=== PATIENT | female | born 1985 | race Caucasian/White ===

== ENCOUNTER 2022-02-21 09:12 | Outpatient (CLI) | payer OTHER, SELFPAY ==
[2022-02-21 11:26] LABS: Cholesterol* 184 mg/dL (90-199)
[2022-02-21 11:27] LABS: HDL Cholesterol* 57 mg/dL (>=50); LDL Cholesterol Calculated 109 mg/dL (<100); Triglycerides* 92 mg/dL (40-149)
== END 2022-02-21 09:13 | disposition home or self-care (01) ==
PROVIDERS: Visit Provider Registered Nurse
DX: Z01.419 Encounter for gynecological examination (general) (routine) without abnormal findings (principal); N92.0 Excessive and frequent menstruation with regular cycle; Z13.6 Encounter for screening for cardiovascular disorders
CPT/HCPCS: 80061; 84443

== ENCOUNTER 2022-03-14 08:36 | Outpatient (CLI) | payer OTHER, SELFPAY ==
--- NOTE | 2022-03-14 08:45 | CRLHL7_ITS ---
For Patients: As a result of the Century Cures Act, medical imaging exams and procedure reports are released immediately into your electronic medical record. You may view this report before your referring provider. If you have questions, please contact your health care provider. INDICATION: Menorrhagia COMPARISON: none TECHNIQUE: 2D aldana scale and color Doppler images were acquired of the pelvis using a transabdominal and transvaginal approach. FINDINGS: Sonographic images demonstrate an enlarged uterus measuring 10.5 x 9.7 x 10.4 cm. There is a large heterogeneous mass associated with the uterus which encompasses the myometrium. The endometrium is not visualized. Neither ovary is visualized. IMPRESSION: Large fibroid uterus with either 1 large fibroid or multiple smaller fibroids. These obscure the endometrium. A pelvic MRI may be more useful for further evaluation. Dictated by Jesus Mathews MD @ 03/14/2022 9:41:15 AM (Electronically Signed)
== END 2022-03-14 08:37 | disposition home or self-care (01) ==
PROVIDERS: PCP Registered Nurse; Visit Provider Registered Nurse
DX: N92.0 Excessive and frequent menstruation with regular cycle (principal); D25.9 Leiomyoma of uterus, unspecified
CPT/HCPCS: 76830; 76856

== ENCOUNTER 2022-09-28 15:23 | Outpatient (CLI) | payer OTHER, SELFPAY ==
--- NOTE | 2022-09-28 15:30 | CRLHL7_ITS ---
For Patients: As a result of the Century Cures Act, medical imaging exams and procedure reports are released immediately into your electronic medical record. You may view this report before your referring provider. If you have questions, please contact your health care provider. INDICATION: Menorrhagia; fibroids. COMPARISON: Pelvic ultrasound March 14, 2022. TECHNIQUE: MR of the pelvis without and with intravenous contrast in axial, coronal and sagittal projections; 15 cc of Dotarem contrast was injected. FINDINGS: Enlarged uterus measuring 14.3 x 10.68 and 0.5 cm. a cluster of uterine fibroids involving the anterior uterine body measuring 13.6 x 10.3 cm in aggregate measurement probably comprising multiple large fibroids. Uterus is displaced posteriorly without any distortion of the endometrial lining. Cystic degeneration within the fibroid. No adnexal pathology. A 2.4 cm cyst in the right ovary. No free fluid identified within the pelvic cul-de-sac. No abnormal pelvic lymphadenopathy. IMPRESSION: 1. Enlarged uterus measuring 14.3 x 10.6 x 10.5 cm. 2. Large uterine fibroid or conglomeration of fibroids measuring 13.6 x 10.3 cm. 3. The uterus displaced posteriorly without any distortion of the endometrial lining. 4. Fibroids originate from the anterior uterine body. 5. Cystic degeneration within the fibroid. 6. Enhancement of the fibroids was contrast indicating these are viable 7. No adnexal pathology. 8. Small cyst in the right ovary measuring 2.4 cm. Dictated by Jaspal Ordoñez MD @ 10/04/2022 9:23:38 PM (Electronically Signed)
== END 2022-09-28 15:24 | disposition home or self-care (01) ==
PROVIDERS: PCP Registered Nurse; Visit Provider Obstetrics & Gynecology
DX: D25.9 Leiomyoma of uterus, unspecified (principal); N92.0 Excessive and frequent menstruation with regular cycle; N85.2 Hypertrophy of uterus; N83.201 Unspecified ovarian cyst, right side
CPT/HCPCS: 72197; A9575

== ENCOUNTER 2023-01-16 08:15 | Outpatient (CLI) | payer OTHER, SELFPAY | END 2023-01-16 08:16 | disposition home or self-care (01) | PROVIDERS: Visit Provider Family Medicine | DX: Z01.818 Encounter for other preprocedural examination (principal) | CPT/HCPCS: 80048; 85025 ==

== ENCOUNTER 2023-02-07 09:29 | Day surgery (SDC) | payer OTHER, SELFPAY ==
[2023-02-07] VITALS (17 sets, daily range): BP systolic 89–119; BP diastolic 43–85; PULSE 60–93; RESP 16–20; TEMP 36.1–37.3; O2SAT 93–99; BMI 30.3
[2023-02-07 10:27] LABS: Hemoglobin* 14.6 gm/dL (12.0-16.0)
[2023-02-07 10:29] LABS: Ur HCG Qualitative* Negative (Negative)
[2023-02-07] MEDS: LACTATED RINGERS 1000 ML 1,000 ML 100 ML IV ×2 (10:44→13:19)
[2023-02-07] MEDS: SODIUM CHLORIDE 0.9 % (FLUSH) 10 ML SYRINGE IVF (10:44)
[2023-02-07] MEDS: SCOPOLAMINE 1 MG/3 DAY PATCH 1 PATCH TRANSDERMA (10:45)
[2023-02-07] MEDS: CEFAZOLIN 2 GM INJ IVP (12:16)
[2023-02-07] MEDS: 0.9 % SODIUM CHLORIDE 50 ml INJECTION (12:40)
[2023-02-07] MEDS: VASOPRESSIN 20 UNIT/ML INJ INJECTION (12:40)
--- NOTE | 2023-02-07 14:55 | W.ANESCHARGE ---
Anesthesia Charges Start Date/Time Anesthesia Start Date: 02/07/23 Anesthesia Start Time: 11:44 Stop Date/Time Anesthesia Stop Date: 02/07/23 Anesthesia Stop Time: 14:56
--- NOTE | 2023-02-07 14:55 | W.PM.NB ---
Nerve Block Nerve Block Time Seen by Provider: 12:00 Date Seen: 02/07/23 Type of block requested by surgeon for post-operative analgesia: TAP Side: bilateral Time out performed: Yes Verification of patient name: Yes Verification of date of : Yes Site marking: site marked Name of person performing procedure: Everton Rosario, if any: Cally Continuous monitoring Was continuous monitoring of O2 sat, B/P, cardiac technician, recorded every 15 minutes?: Yes Procedure Checklist: sterile prep, needles and gloves Ultrasound guided. Images saved: Yes Medications given in 5ml increments after negative aspiration: Marcaine %: 0.25 mL: 30 Needle gauge: 20 and Exparel mL: 10 Patient tolerated procedure well: Yes Additional comments: Needle noted adjacent to nerve Block Charges Block Charge (with Pro Fee): TAP Bilateral Use of Ultrasound Machine for Block: Yes- US Guidance/pain block
--- NOTE | 2023-02-07 15:00 | W.ANESCHARGE ---
Anesthesia Charges Start Date/Time Anesthesia Start Date: 02/07/23 Anesthesia Start Time: 11:44 Stop Date/Time Anesthesia Stop Date: 02/07/23 Anesthesia Stop Time: 14:56
--- NOTE | 2023-02-07 15:25 | W.PM.H&PU ---
History & Physical Update History & Physical Update H&P Reviewed and patient assessed: No changes noted
--- NOTE | 2023-02-07 15:28 | P.GYNPRC_ITS ---
Procedure Note Time Seen by Provider: 12:00 Date of procedure: 02/07/23 Pre-op diagnosis: Uterine leiomyomas Post-op diagnosis: same Procedure: Open abdominal myomectomy and diagnostic cystoscopy Anesthesia: GETA and other (TAP block ) Complications: None Surgeon: Elaina Briseno MD Studio Engineer: Rayne Hernandez IV fluids (mL): 1,700 Urine Output (mL): 150 Pathology: specimen obtained, sent to pathology (Uterine leiomyoma) Condition: stable Disposition: floor Findings: FINDINGS: Uterine fibroid palpated abdominally at 2 cm below the umbilicus. On laparotomy: Large conglomeration of uterine leiomyomas measuring approximate 14 x 10 cm on the anterior aspect of the uterus. 1 cm fibroid at the uterine fundus. Normal bilateral fallopian tubes. Normal right ovary. Left ovary with 2 cm simple cyst. On cystoscopy: Intact bladder. Normal bilateral ureteral efflux. Procedure Description: PROCEDURE: After obtaining informed consent, the Nanci was taken to the operating room where general anesthesia was obtained without difficulty. A broderick catheter was placed. She was prepared and draped in the normal sterile fashion in the dorsal supine position. A Pfannenstiel skin incision was made with a scalpel. This incision was carried down to the underlying layer of fascia with combination of the sharp dissection with the scalpel and bipolar cautery using the Bovie. The fascia was incised in the midline with the scalpel and the incision extended laterally with Baez scissors. The superior and inferior aspects of the fascial incision were grasped with Callum clamps and the underlying rectus muscles dissected off sharply. The rectus muscles were in the midline. The underlying peritoneum was identified and entered bluntly. The peritoneal incision was extended superiorly and inferiorly with good visualization of the bladder. The uterine fibroid visualized readily after entry into the peritoneal cavity. The fibroid was elevated out of the pelvis and iintraabdominal cavity with the assist of the surgeon's hands. After elevation out of the pelvis and intraabdominal cavity, there was excellent visualization of the uterine fibroid and the pelvis. The pelvis was inspected with the findings noted above. A bladder flap was developed by grasping with [place] forcep and enter with Metzenbaun scissor. Then sharp and blunt dissection with Metzenbaum scissor and fingers were performed. Attention was then turned towards myomectomy. 24 mL of dilute vasopressin was injected longitudinally along the serosal surface and careful to aspirate to avoid any blood vessels. Next, electrocautery was used to cut the linear incision along starting from the top of the anterior fibroid to the lower uterine segment. This was done until fibroid fibers were seen. The edges of the myometrium was grasped with Allis clamps, tented up, and a hemostat was used to bluntly dissect around the uterine fibroid followed by blunt dissection with a finger. This process was repeated circumferentially around the fibroid. Once the blunt dissection of the large fibroid(s) was completed intact, it was handed off to scrub nurse. The large fibroid traversed the whole myometrium down up to the mucosal surface. However, the endometrial cavity was not entered during this myomectomy. Redundant myometrial tissue was removed with electrocautery. Next, the defect was closed in two layers using 0 vicryl with continuous locking stitches another imbricating layer with 0 Vicryl as well. One [id number] with 0 Monocryl was placed at the fundus of the uterus due to bleeding serosa. Hemostasis was achieved as needed with electrocautery. Mitzy was also applied along the uterine incision. Excellent hemostasis was noted. The uterus was then carefully returned to abdomen. Fascia was closed with running stitches using 0 Vicryl. Subcutaneous layer was irrigated. Hemostasis was checked for and found to be adequate. The subcutaneous layer was closed with running 2-0 plain gut sutures. The skin was closed with 4- 0 Vicryl subcuticular sutures . The incision was cleaned, Exofin and Mepilex dressing was applied. Attention was then turned towards the diagnostic cystoscopy. The Broderick catheter was briefly removed. A diagnostic cystoscopy was performed using normal saline as the insufflation medium. The dome of the bladder was noted to be without injury and no evidence of any sutures from the vaginal cuff causing injury. Normal urine flow was noted through both ureteral orifices. Methylene blue IV was used to visualize the urine more easily. The Broderick catheter was then replaced. The procedure was considered terminated at this time. The patient tolerated the procedure well. However, at the end of the procedure, it was noted that the patient had developed hives along the Pfannenstiel incision all the way down to her thighs and a few areas along her upper abdomen. This is most likely an allergic reaction to the ChloraPrep out was used. I asked Anesthesia to administer IV Benadryl. We will treat her with antihistamine and triamcinolone cream postoperatively as well. Her allergies were updated in her chart. Sponge, lap, needle, instrument counts were reported as correct x2. The patient was taken to recovery room awake and in stable condition. Preop antibiotics: Ancef 2 g IV 1 g of IV TXA was administered Postop pain control: Toradal 30 mg IV QBL: 350 cc. Drains: Broderick catheter to gravity. Uterine leiomyoma (s) weight: 625 gm. Surgical debriefed performed.
[2023-02-07] MEDS: HYDROmorphone 0.5 mg/0.5 ml inj 0.2 MG IVP (16:33)
[2023-02-07] MEDS: LACTATED RINGERS 1000 ML 1,000 ML 25 ML IV (18:13)
--- NOTE | 2023-02-07 19:22 | PC.NURSE ---
End of Shift: The patient arrived to the floor around 1545 this afternoon. Knapp catheter is patent and draining throughout the shift. Reported initial 5/10 pain in abdomen upon arrival Dilaudid was given 1x with adequate relief... rated @ 2/10 after administration. Patient is tolerating fluids/ food with no Nausea or vomiting. LR running @ 100. Up to the chair for dinner tolerated this well. Lower abdominal incision is CDI with no drainage. Ice pack to her abdomen throughout the shift. Calls appropriately. TEDS in place, SCDS on when the patient is in bed. Her mom Harika called this evening an update was given she was also going ot call her. MARYBEL PLTAA BSN
[2023-02-07] MEDS: TRIAMCINOLONE ACETONIDE CREAM 0.1 % 1 APPLIC TOPICAL (21:19)
[2023-02-08 03:00] VITALS: BP 117/76; PULSE 105; RESP 16; TEMP 37.4; O2SAT 95
[2023-02-08] MEDS: LACTATED RINGERS 1000 ML 1,000 ML 25 ML IV (03:56)
--- NOTE | 2023-02-08 05:23 | PC.NURSE ---
Patient pleasant, alert and oriented. Reported tolerating abdominal pain rated 1-2/10 at rest and 4/10 when coughing. Dressing to abdomen clean, dry and intact. Scant amount of vaginal bleeding. Hives to abdomen and upper thighs slightly pink. Denied itching. Catheter patent. Temp 97.7-99.4. All other VSS.
[2023-02-08 06:00] LABS: Hemoglobin* 12.9 gm/dL (12.0-16.0)
[2023-02-08 06:16] LABS: Creatinine* 0.8 mg/dL (0.5-1.5); Est. Creatinine Clearance* 99.01; Estimated Glomerular Filt Rate 98 ml/min
[2023-02-08 07:00] VITALS: BP 120/78; PULSE 122; RESP 20; TEMP 37.5; O2SAT 96
--- NOTE | 2023-02-08 09:08 | P.DS_ITS ---
DS: Providers Provider Time Seen by Provider: 07:00 Date Seen: 02/08/23 Primary care physician: Jesus Worthington MD Attending Physician on discharge: Elaina Briseno MD DS: Diagnosis Discharge Diagnosis (1) Menorrhagia: Status: Acute (2) Environmental allergies: Status: Acute Problem details: Reports she has hives with pressure on her skin. Will be seeing a certified composites technician/general activities therapist. (3) Fibroid, uterine: Status: Acute Problem details: s/p open abdominal myomectomy ORNAMENTER-Discharge Summary Hospital Course Hospital Course Narrative: Nanci is a 37 year old G0 admitted on 02/07/23 for scheduled open abdominal myomectomy. Indication for surgery: Large uterine leiomyoma. Intraoperative findings: Uterine fibroid palpated abdominally at 2 cm below the umbilicus. On laparotomy: Large conglomeration of uterine leiomyomas measuring approximate 14 x 10 cm on the anterior aspect of the uterus. 1 cm fibroid at the uterine fundus. Normal bilateral fallopian tubes. Normal right ovary. Left ovary with 2 cm simple cyst. On cystoscopy: Intact bladder. Normal bilateral ureteral efflux. She had an uncomplicated surgery. Postoperative course has been uneventful. Vitals have been stable. She has remained afebrile. Today, on postoperative day 1, she reports the pain is well controlled. She has been able to ambulate Without difficulty. She is tolerating regular diet. She is passing flatus. Broderick catheter has been removed, and she is voiding without difficulty. Her rash has completely resolved. Nanci doesn't believe she has an allergy to the surgical prep as she states she's been getting hives when increased pressure is applied to her skin. This has been occurring for the last couple of months. She is seeing a certified composites technician soon and is anticipating a referral to an general activities therapist after her derm appointment. Time Spent with Patient Time attestation: Total time spent providing and/or coordinating discharge services: Time spent: Less than 30 minutes ORNAMENTER - Exam Physical Exam: Vital signs: Temp Pulse Resp BP Pulse Ox O2 Del Method O2 Flow Rate 99.4 F 105 H 16 117/76 95 Room Air 10 02/08/23 03:00 02/08/23 03:00 02/08/23 03:00 02/08/23 03:00 02/08/23 03:00 02/08/23 03:00 02/07/23 15:35 Narrative: Physical exam: General: No acute distress Psych: Alert and oriented x4, full affect HEENT: Normocephalic, atraumatic Neck: No cervical adenopathy, no thyromegaly Heart: Regular rate and rhythm, no murmur rub or gallop Lungs: Clear to auscultation bilaterally Abdomen: Normoactive bowel sounds, soft, no tenderness, rebound, or guarding, no masses Incision: Appropriately tender to palpation. Dressing clean, dry, and intact. No erythema, induration, or abnormal discharge/breakdown of the surrounding skin. No hives. Skin: No lesions or rashes Lower extremities: No edema or erythema Pelvic exam: Deferred. ORNAMENTER - DS: Data Data Completed and Pending Labs on day of discharge: Labs from last 24 hours 02/08/23 02/07/23 02/07/23 05:15 Unknown 10:17 Hgb 12.9 14.6 Creatinine 0.8 Estimated Creat Clear 99.01 Estimated GFR 98 Urine HCG, Qual Negative Blood Type O Positive Antibody Screen NEGATIVE Procedures Procedures: Procedures Operation Date: 02/07/23 11:10 Actual Procedure Side Surgeon p Open Abdominal Myomectomy and Cystoscopy Elaina Briseno MD Discharge Plan Discharge Disposition: Home, Self-Care Discharging Surgeon: Elaina Briseno Follow-Up Appointment: 2 weeks postop Prescriptions: New acetaminophen 325 mg Tablet 650 mg PO Q6H PRN (Reason: minor pain) 30 Days Qty: 60 0RF cetirizine 10 mg Tablet 10 mg PO Q24H 30 Days Qty: 30 0RF docusate sodium 100 mg Capsule 100 mg PO BID PRN (Reason: Constipation) 30 Days Qty: 60 0RF simethicone 80 mg Tablet,Chewable 160 mg PO Q4H PRN (Reason: gas) 30 Days Qty: 60 0RF oxycodone 5 mg Tablet 5 mg PO Q6H PRN (Reason: Moderate Pain) 14 Days Qty: 20 0RF triamcinolone acetonide 0.1 % cream 1 applic topical BID PRN (Reason: hives) Qty: 15 0RF polyethylene glycol 3350 [Miralax] 17 gram/dose powder 17 g PO DAILY Qty: 119 0RF Continued norgestimate-ethinyl estradiol [Sprintec (28)] 0.25-35 mg-mcg tablet 1 tab PO QDAY Qty: 84 4RF levocetirizine [Xyzal] 5 mg tablet 5 mg PO QDAY mometasone 50 mcg/actuation spray,non-aerosol 1 intranasal DAILY Activity Detail: See Direction Discharge Diet: Regular Patient Instructions: Acetaminophen (By mouth), Simethicone (By mouth), Laxative, Stimulant (By mouth), Triamcinolone (On the skin), Oxycodone, Rapid Release (By mouth), Cetirizine (By mouth), Polyethylene Glycol 3350 (By mouth), Surgical Site Infections (DC), Myomectomy (DC) Additional Instructions: OPEN ABDOMINAL SURGERY POSTOPERATIVE INSTRUCTIONS ACTIVITY No heavy lifting/pushing/pulling for 4-6 weeks. Do not lift anything more than about 10-15 lbs (such as laundry, groceries, children, pets), vacuum, push heavy doors or grocery carts, etc. You may climb stairs as tolerated. Do not put anything in the vagina for 6 weeks after surgery unless otherwise instructed by your doctor (including tampons, douching, sexual intercourse, etc). No driving for about 2 weeks after surgery, while you are taking narcotic pain medication, or until you feel that you are ready. Practice checking your blind spot and stepping hard on the brake. Avoid sitting or lying in bed for more than 2 hours at a time while you are awake to reduce your risk of blood clots. You may return to work when directed by your physician. Please contact your doctor if you need any return to work letters or medical leave paperwork to be completed. WOUND CARE You will have one large incision on your abdomen. There will be dissolvable stitches under your skin that do not need to be removed. You will also have surgical glue on the incisions and these may be removed when they curl up at the edges. Shower daily after surgery. Clean your incision with mild antibacterial soap and water. Pat your incision dry with a clean towel. No tub baths until wound is c ompletely healed. Wash your hands frequently, especially before touching your incision, changing any dressings, after using the restroom, and before eating. PAIN MANAGEMENT Take your oral pain medication as needed. You should be taking Ibuprofen 600mg every 6 hours with 1 gram of Tylenol every 6 hours. You can take these together every six hours or alternate them every 3 hours. You should then take the oxycodone as needed if you have breakthrough pain on top of the Tylenol and Ibuprofen. Some pain medications can cause constipation so you should take a stool softener (i.e. colace) while you are on these medications. You may also take milk of magnesia or Miralax for constipation. WHAT TO EXPECT AT HOME Recovery from surgery is generally 4-6 weeks, but sometimes longer for more strenuous activity. It is normal to be very tired during this time. It is normal to have some drainage or a small amount of vaginal bleeding after surgery which may last up to 6 weeks. You may go home with a broderick catheter in your bladder. You will need to follow up for a nurse visit in 7-10 days for removal. You will most likely experience gas pain, abdominal swelling, or shoulder pain for 24-72 hours after surgery. A warm shower, heating pad, and/or walking may help. WHEN TO CALL YOUR DOCTOR : Fever (>100.4?F or 38.0?C) or chills. Incision problems such as redness, warmth, swelling, or foul smelling drainage. Severe nausea or persistent vomiting. Bright red vaginal bleeding (soaking >1 pad/hour) or foul smelling vaginal drainage. Severe pain not relieved with pain medication. Pain and swelling in your legs, especially if it is only on one side and not the other. Pain with urination, cloudy urine, or foul smelling urine. Or if you have any other problems or questions. CALL 911 OR GO TO THE EMERGENCY ROOM IF YOU HAVE: Any shortness of breath, difficulty breathing, or chest pain. Forms: Work/School Release Follow-up: Jesus Worthington MD [Primary Care Provider] - Elaina Briseno MD [Staff Physician] - 02/22/23 8:45 am ([facility]) Discharge Orders: Discharge Order (Routine); Ordered 02/08/23 Ordered By: Elaina Briseno
[2023-02-08] MEDS: OXYCODONE 5 MG TABLET PO (11:23)
[2023-02-08] MEDS: ACETAMINOPHEN 325 MG TABLET 650 MG PO (11:23)
--- NOTE | 2023-02-08 14:30 | PC.NURSE ---
Discharge - Pt alert, oriented, cooperative during shift. Up with standby assistance in room. VSS, tolerating RA, afebrile. Indwelling catheter removed, tip intact, pt void x 3. Pt reports pain as 2/10 that increases with movement, position, and coughing. Interventions given per MAR, verbalized improvement and tolerating pain at 2/10. Dressing removed prior to discharge per MD, no redness or drainage noted. Incision open to air for discharge. Discharge instructions given, paperwork signed, verbalized understanding from pt. Pt discharged to home with parent at approximately 12:50.
== END 2023-02-08 12:50 | disposition home or self-care (01) ==
LOC: OR 09:31 → MEDSURG 09:34
PROVIDERS: PCP Family Medicine; Visit Provider Obstetrics & Gynecology
PROC: 0UT94ZZ Resection of Uterus, Percutaneous Endoscopic Approach (ICD-10-PCS; CPT 52000; principal; 2023-02-07 11:00)
DX: D25.9 Leiomyoma of uterus, unspecified (principal); N83.292 Other ovarian cyst, left side; G89.18 Other acute postprocedural pain; L50.9 Urticaria, unspecified
CPT/HCPCS: 58146; 52000; 00840; 36415; 64486; 76942; 81025; 82565; 85018; 86850; 86900; 86901; 88305; 88341; 88342; A9270; C9290; J0665; J0690; J1100; J1170; J1200; J1630; J1885; J2250; J2405; J2704; J2710; J3010; J3475; J3490; J7120